=== PATIENT | male | born 1990 | race Caucasian/White ===

== ENCOUNTER → 2016-07-13 | Outpatient (CLI) | payer OTHER ==
--- NOTE | 2016-07-13 15:02 | US ---
Appendiceal And Right Lower Quadrant Ultrasound History: Right lower quadrant pain. Comparison: None available. Technique: Limited ultrasound of the right lower quadrant is performed. Findings: The appendix is not visualized. There is no free fluid. There is no visible hernia in the a edward of interest. Diffuse fatty infiltration of the liver is noted. Impression: 1. Nonvisualization of the appendix with no secondary evidence of appendicitis. No visible etiology f or the patient's pain. 2. Fatty liver. Findings discussed with Burt Gross today at 1500 hours.
== END ==
LOC: BMCIMAGING 10:52
PROVIDERS: ATTEND Emergency Medicine
DX: K76.0 Fatty (change of) liver, not elsewhere classified (principal); R10.31 Right lower quadrant pain